=== PATIENT | female | born 1935 | race Caucasian/White ===

== ENCOUNTER 2017-01-23 07:09 | Outpatient (CLI) | payer MEDICARE, BC ==
[2017-01-23 07:56] LABS: Anion Gap 15 mmol/L (10-20); BUN (Urea Nitrogen) 95 mg/dL (9.8-20.1); Calc. Creatinine Clearance 0 mL/min (70-130); Carbon Dioxide 20 mmol/L (23-31); Chloride 113 mmol/L (98-107); Estimated GFR-MDRD 25; Glucose 95 mg/dL (83-110); Potassium 4.2 mmol/L (3.5-5.1); Sodium 144 mmol/L (136-145)
[2017-01-23 09:45] LABS: #Basophils 0.1 thou/uL (0.0-0.2); #Eosinphils 0.1 thou/uL (0.0-0.7); #Lymphocytes 1.8 thou/uL (1.20-3.40); #Monocytes 0.7 thou/uL (0.11-0.59); #Neutrophils 6.7 thou/uL (1.40-6.50); %Basophils 1.2 % (0.0-1.0); %Eosinophils 0.8 % (0.0-10.0); %Lymphocytes 18.6 % (21.0-51.0); %Monocytes 7.9 % (0.0-10.0); %Neutrophils 71.5 % (42.0-75.0); Giant Platelets SLIGHT; Hemoglobin 12.6 g/dL (12.0-16.0); Large Platelets SLIGHT; MDiff Complete? YES; Macrocytosis SLIGHT = 6-15 cells (100X) (0-5/hpf); Mean Corpuscular HGB CONC 32.7 g/dL (32.0-36.0); Mean Corpuscular Hemoglobin 33.6 pg (27.0-31.0); Mean Platelet Volume 14.1 fL (7.4-10.4); PLT Morphology Comment Appears Decreased; Platelet Count 124 thou/uL (130-400); RBC Distribution Width 15.3 % (11.5-14.5); Red Blood Cell (RBC) Count 3.73 mill/uL (4.20-5.40); White Blood Cell (WBC) Count 9.4 thou/uL (4.8-10.8)
[2017-01-23 18:19] LABS: Phosphorus 3.9 mg/dL (2.3-4.7)
== END 2017-01-23 07:10 | disposition home or self-care (01) ==
LOC: BURLAB 07:09
PROVIDERS: ATTEND Internal Medicine Nephrology
DX: N18.4 Chronic kidney disease, stage 4 (severe) (principal)
CPT/HCPCS: 36415; 80048; 83970; 84100; 85025

== ENCOUNTER 2017-07-03 07:21 | Outpatient (CLI) | payer MEDICARE, BC ==
[2017-07-03 08:11] LABS: Anion Gap 14 mmol/L (10-20); BUN (Urea Nitrogen) 83 mg/dL (9.8-20.1); Calc. Creatinine Clearance 0 mL/min (70-130); Calcium 11.1 mg/dL (7.8-10.44); Carbon Dioxide 23 mmol/L (23-31); Chloride 112 mmol/L (98-107); Estimated GFR-MDRD 26; Glucose 91 mg/dL (83-110); Potassium 5.4 mmol/L (3.5-5.1); Sodium 144 mmol/L (136-145)
== END 2017-07-03 07:22 | disposition home or self-care (01) ==
LOC: BURLAB 07:21
PROVIDERS: ATTEND Internal Medicine Nephrology
DX: N18.4 Chronic kidney disease, stage 4 (severe) (principal)
CPT/HCPCS: 36415; 80048; 83970

== ENCOUNTER 2024-03-06 07:00 | Outpatient (CLI) | payer MEDICARE, BC ==
[2024-03-06 07:40] LABS: Anion Gap 17 mmol/L (10-20); BUN (Urea Nitrogen) 62 mg/dL (9.8-20.1); Calc. Creatinine Clearance 0 mL/min (70-130); Carbon Dioxide 27 mmol/L (23-31); Chloride 103 mmol/L (98-107); Estimated GFR 14; Glucose 97 mg/dL (83-110); Potassium 4.8 mmol/L (3.5-5.1); Sodium 142 mmol/L (136-145)
[2024-03-06 08:22] LABS: #Basophils 0.1 thou/uL (0.0-0.2); #Lymphocytes 1.6 thou/uL (1.20-3.40); #Monocytes 0.7 thou/uL (0.11-0.59); #Neutrophils 3.7 thou/uL (1.40-6.50); %Basophils 1.1 % (0.0-1.0); %Monocytes 10.8 % (0.0-10.0); %Neutrophils 61.1 % (42.0-75.0); Hematocrit 36.7 % (36.0-47.0); Hemoglobin 11.2 g/dL (12.0-16.0); Large Platelets SLIGHT (None Seen); MDiff Complete? YES; Mean Corpuscular HGB CONC 30.5 g/dL (32.0-36.0); Mean Corpuscular Hemoglobin 31.6 pg (27.0-31.0); Mean Platelet Volume 13.8 fL (7.4-10.4); Platelet Adequacy Comment Appears Decreased; Platelet Count 112 10x3/uL (130-400); RBC Distribution Width 14.3 % (11.5-14.5); Red Blood Cell (RBC) Count 3.69 mill/uL (4.20-5.40)
[2024-03-06 11:35] LABS: Phosphorus 3.7 mg/dL (2.3-4.7)
[2024-03-06 12:49] LABS: Parathyroid Hormone - Intact 187.1 pg/mL (19.8-88.0)
== END 2024-03-06 07:01 | disposition home or self-care (01) ==
LOC: BURLAB 07:00
PROVIDERS: ATTEND Internal Medicine Cardiovascular Disease
DX: I25.10 Atherosclerotic heart disease of native coronary artery without angina pectoris (principal); N18.4 Chronic kidney disease, stage 4 (severe)
CPT/HCPCS: 36415; 80048; 83880; 83970; 84100; 85025